=== PATIENT | male | born 1985 | race Caucasian/White ===

== ENCOUNTER 2024-08-03 21:49 | Emergency (ER) | payer BC, SELFPAY ==
[2024-08-03 21:51] VITALS: BMI 29.8
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
[2024-08-03 23:13] VITALS: BP 169/100; PULSE 78; RESP 18; TEMP 36.9; O2SAT 97
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
[2024-08-03] MEDS: ONDANSETRON INJ 2 MG/ML INJ 2 ML 4 MG IV (23:48)
[2024-08-03] MEDS: HYDROmorphone INJ 2 MG/ML VIAL 1 MG IVP (23:49)
[2024-08-03] MEDS: ACETAMINOPHEN IVPB 1,000 MG/100 ML VIAL 250 MG IV (23:52)
[2024-08-03 23:54] LABS: Lactate (Lactic Acid) 2.6 mMol/L (0.4-2.0)
[2024-08-04 00:12] LABS: Basophils # (Auto) 0.1 Thou/mm3 (0.0-0.2); Basophils % (Auto) 1 % (0-2.5); Eosinophils # (Auto) 0.5 Thou/mm3 (0.0-0.5); Eosinophils % (Auto) 3 % (0-10); Hematocrit 44.7 % (41.0-53.0); Hemoglobin 15.1 g/dL (13.5-16.0); Immature Granulocytes % (Auto) 3 % (0-0); Immature Granulocytes Auto 0.36 Thou/mm3 (0.00-0.00); Lymphocytes # (Auto) 3.1 Thou/mm3 (1.0-4.8); Lymphocytes % (Auto) 21 % (10-50); Mean Corpuscular HGB Conc 33.8 g/dl (31.0-37.0); Mean Corpuscular Hemoglobin 30.9 pg (25.0-35.0); Mean Corpuscular Volume 91 fL (80-100); Monocytes # (Auto) 1.2 Thou/mm3 (0.0-0.8); Monocytes % (Auto) 8 % (0-12); Neutrophils # (Auto) 9.1 Thou/mm3 (1.8-7.7); Neutrophils % (Auto) 64 % (37-80); Nucleated Red Blood Cell % 0 /100 WBC (0); Platelet Count 266 Thou/mm3 (140-440); RDW Standard Deviation 45.8 fL (35.1-43.9); Red Blood Count 4.89 Miln/mm3 (4.50-5.90); White Blood Count 14.3 Thou/mm3 (3.8-10.6)
[2024-08-04 00:27] LABS: Alanine Aminotransferase 20 U/L (10-49); Albumin, Serum 4.4 gm/dL (3.5-5.0); Albumin/Globulin Ratio 1.6 (1.2-2.2); Alkaline Phosphatase 70 U/L (46-116); Anion Gap 11 (7-16); Aspartate Amino Transferase 24 U/L (0-34); BUN/Creatinine Ratio 14 Ratio (12-20); Bilirubin,Total 0.3 mg/dL (0.3-1.2); Blood Urea Nitrogen 13 mg/dL (9-23); Carbon Dioxide 24.2 mMol/L (20.0-31.0); Chloride 104 mMol/L (98-107); Creatinine (Component) 0.9 mg/dL (0.6-1.3); Estimated Creatinine Clearance 133.5 mL/min (>60); Globulin 2.7 gm/dL (2.3-3.5); Glucose 141 mg/dL (74-106); Lipase 29 U/L (12-53); Osmolality,Calculated 279 (275-295); Potassium 3.7 mMol/L (3.4-5.1); Sodium 139 mMol/L (136-145); Total Protein 7.1 gm/dL (5.7-8.2); Troponin I < 0.002 ng/mL (0.0-0.045); eGFR > 60 See Note
[2024-08-04 01:02] VITALS: BP 153/101; PULSE 67; RESP 18; O2SAT 97
--- NOTE | 2024-08-04 01:03 | PC.NURSE ---
REPORT GIVEN TO MIGUELANGEL STRINGER AT [facility].
[2024-08-04 02:51] LABS: Reflex Lactate? Y
== END 2024-08-04 01:06 | disposition short-term general hospital (02) ==
PROVIDERS: Emergency Provider Emergency Medicine
DX: S42.021A Displaced fracture of shaft of right clavicle, initial encounter for closed fracture (principal); S42.111A Displaced fracture of body of scapula, right shoulder, initial encounter for closed fracture; V88.8XXA Person injured in other specified noncollision transport accidents involving motor vehicle, nontraffic, initial encounter
CPT/HCPCS: 36415; 73030; 80053; 83605; 83690; 84484; 85025; 96365; 96375; 99285; J0131; J2405; J3490

== ENCOUNTER 2024-08-05 14:51 | Emergency (ER) | payer BC, SELFPAY ==
[2024-08-05 15:14] VITALS: BP 163/100; PULSE 87; RESP 18; TEMP 36.8; O2SAT 98; BMI 30.5
--- NOTE | 2024-08-05 15:25 | XR_ITS ---
Examination: CT right shoulder, without contrast. 2-D sagittal reconstructions. 2-D coronal reconstructions. 3-D reconstructions. Date and time of exam:August 05, 2024 1656 hours INDICATIONS: Patient fell 4 days ago with injury to the shoulder, shoulder pain CTDI: vol (mGy):20.4 DLP: (mGycm):544 Technique: Multiple 1.25 mm axial sections of the right shoulder have been obtained. 2-D sagittal and coronal reconstructions have been obtained. 3-D reconstructions have been obtained. Low dose protocols were performed. One or more of the following dose reduction techniques were used; automated exposure control, adjustment of the mA and/or KV according to patient size, use of iterative reconstruction technique. Findings: Humeral head neck and visualized shaft are intact No shoulder dislocation Fracture mid to distal shaft clavicle 6 mm offset at the fracture site No AC joint separation Comminuted fractures body of the scapula with 11 mm offset of the main scapular fracture fragments, axial image 60 The main fracture line extends from the axillary border of the scapula below the bony glenoid fossa to the upper medial margin of the scapula below the scapular spine Fracture lines do not extend to the bony glenoid fossa IMPRESSION: Fracture mid to distal clavicular shaft with minimal offset Comminuted fractures body of the scapula as above
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
[2024-08-05] MEDS: KETOROLAC INJ 60 MG/2 ML VIAL 30 MG IM (15:35)
[2024-08-05 17:45] VITALS: BP 166/95; PULSE 89; RESP 18; TEMP 37.1; O2SAT 99
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
[2024-08-05] MEDS: oxyCODONE/APAP 5/325 TABLET 1 TAB PO (18:16)
== END 2024-08-05 18:21 | disposition home or self-care (01) ==
PROVIDERS: Emergency Provider Family Medicine
DX: S42.101A Fracture of unspecified part of scapula, right shoulder, initial encounter for closed fracture (principal); S42.021A Displaced fracture of shaft of right clavicle, initial encounter for closed fracture; V28.09XA Other motorcycle driver injured in noncollision transport accident in nontraffic accident, initial encounter
CPT/HCPCS: 73200; 96372; 99284; A4565; J1885; A9270